=== PATIENT | male | born 1970 | race Caucasian/White ===

== ENCOUNTER 2018-08-05 14:17 | Emergency (ER) | payer OTHER ==
[2018-08-05 14:59] LABS: MEAN CORPUSCULAR HEMOGLOBIN 28.7 pg (28.0-34.0)
[2018-08-05] MEDS ORDERED: MULTIVIT INFUSN ADULT K IV SCH (15:00)
[2018-08-05] MEDS ORDERED: FOLIC ACID IV SCH (15:00)
[2018-08-05] MEDS ORDERED: [UNRECOGNIZED DRUG - OTHER] IV SCH (15:00)
[2018-08-05] MEDS ORDERED: THIAMINE HCL IV SCH (15:00)
--- NOTE | 2018-08-05 15:01 | ED Physician Documentation ---
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 Pt presents to the ED via POV with [facility] drug treatment facility counselor requesting medical clearance. reportedly pt has been drinking 1/2-1 gallon of vodka per day for the past 2 weeks. Pt has been trying to taper off on his own and has drank 1/2 pint of vodka today. previous to this episode pt had been etoh free for several years. pt has a hx DTs and acute liver failure from drinking per report. pt has a history of HTN and is Rx amlodipine although pt declines taking it the past several days. ROS/history limited due to pt condition. - ROS CONST: sweating, other (ETOH odor/intoxicated ) EYES/ENT: none CVS/RESP: none GI/: none. denies: vomiting, nausea MS/SKIN/LYMPH: none. denies: ankle swelling NEURO/PSYCH: denies: headache, fainting, dizziness, tingling - PAST HX Past History: hypertension Other History: other (liver failure) Allergies/Adverse Reactions: Allergies Allergy/AdvReac Type Severity Reaction Status Date / Time No Known Allergies Allergy Verified 08/05/18 15:02 Home Medications: Ambulatory Orders Medication Instructions Recorded Amlodipine/Valsartan [Exforge 1 tab PO DAILY 08/05/18 10-160 mg Tablet] - SOCIAL HX Smoking History: non-smoker Alcohol Use: heavy - FAMILY HX Family History: No - VITAL SIGNS Vital Signs: Vital Signs Temp Pulse Resp BP Pulse Ox 116 H 15 160/118 95 08/05/18 14:25 08/05/18 14:25 08/05/18 14:25 08/05/18 14:25 - REVIEWED ASSESSMENTS Nursing Assessment Reviewed: Yes Vitals Reviewed: Yes Progress - Progress Progress: 1530_ pt has increased restlessness and agitation. alert and mildly confused. Ativan 2 mg IV ordered. vss 1620-Pt has increased restlessness and tremors. Ativan 2 mg IV ordered. improved mentation. alert and oriented person and place. pt agrees to be transferred to higher level of care. vss 1625- Discussed Case with Dr Gross. He agrees pt needs to be admitted. No beds available at [facility]. - EKG/XRAY/CT EKG: rhythm (Sinus Tachycardia. No ectopy. normal axis. normal intervals. ), no ST T wave changes - Consult/PCP Time Called: 16:40 Consult/PCP: Dr Lou Alva [facility] Consult Reason/Comments: Accepted pt for transfer. Pt to be transferred via ALS ground. - Additional EKG/XRAY/Consults EKG #2: rhythm (Sinus Tachycardia. No ectopy. normal axis. normal intervals. ), unchanged from (1436) ED Results Lab/Radiology - Orders Orders: ED Orders Category Date Time Status ALCOHOL MEDICAL USE ONLY Stat Lab 08/05/18 Received CBC PLATELETS NO DIFF Stat Lab 08/05/18 14:40 Received CMP [CMP] Stat Lab 08/05/18 Received MAGNESIUM Stat Lab 08/05/18 Ordered TSH [THYROID STIMULATING HORMONE] Stat Lab 08/05/18 Received UA W/MICRO IF INDICATED Stat Lab 08/05/18 14:41 Ordered Urine drug screen [DRUG SCREEN URINE MEDICAL ONLY] Lab 08/05/18 Ordered Routine LORazepam [Ativan] Med 08/05/18 14:45 Discontinued 2 mg IVP NOW ONE Magnesium Sulfate/D5w [Magnesium-D5w 1 gm/100 ml Soln] Med 08/05/18 14:39 Discontinued 1 gm Premix Bag [Premix Fluid] 1 bag IV NOW Magnesium Sulfate/D5w [Magnesium-D5w 1 gm/100 ml Soln] Med 08/05/18 14:52 Discontinued 1 gm Premix Bag [Premix Fluid] 1 bag IV NOW Thiamine HCl 200 mg Med 08/05/18 15:00 Ordered Multivit Infusn,Adult 1,Vit K [M.v.i. Adult] 10 ml Folic Acid [Folvite] 5 mg 0.9 % Sodium Chloride [Normal Saline] 1,000 ml IV 1T Thiamine HCl 200 mg Med 08/05/18 15:00 Ordered Multivit Infusn,Adult 1,Vit K [M.v.i. Adult] 10 ml Folic Acid [Folvite] 5 mg 0.9 % Sodium Chloride [Normal Saline] 1,000 ml IV 1T General Adult Physical Exam - PHYSICAL EXAM GENERAL APPEARANCE: moderate distress EENT: eye inspection normal, ENT inspection normal, pharynx normal, no signs of dehydration NECK: normal inspection, supple RESPIRATORY: no resp distress, breath sounds normal. No: wheezes, rales, rhonchi CVS: reg rate & rhythm, tachycardia (110s) ABDOMEN: soft, normal bowel sounds, non-tender. No: guarding BACK: normal inspection SKIN: warm/dry, normal color EXTREMITIES: non-tender NEURO: disoriented (person only. unsteady gait. alert) Discharge Clincal Impression: Alcohol withdrawal Qualifiers: Complication of substance-induced condition: with delirium Qualified Code(s): F10.231 - Alcohol dependence with withdrawal delirium Referrals: Primary Doctor,No [Primary Care Provider] - 2 Days Condition: Good Disposition: 02 XFER S[facility]M HOSP Decision to Admit: NO Date of Decison to Admit: 08/05/18 Decision Time: 16:47
[2018-08-05] MEDS: MAGNESIUM SULFATE/D5W 1 GM in PREMIX BAG 1 BAG IV ONE ×2 (15:15→16:12)
[2018-08-05] MEDS: LORazepam 2 MG/ML VIAL IVP ONE ×3 (15:15→16:32)
[2018-08-05] MEDS: MAGNESIUM SULFATE/D5W 200 ML IV ONE (15:16)
[2018-08-05] MEDS: 0.9 % SODIUM CHLORIDE 1,000 ML IV ONE ×2 (15:17→15:57)
[2018-08-05] MEDS: MULTIVIT INFUSN,ADULT 1,VIT K 10 ML VIAL IV ONE (15:17)
[2018-08-05] MEDS: FOLIC ACID 5 MG/1 ML ONE (15:17)
[2018-08-05] MEDS: THIAMINE HCL 100 MG/ML 2ML VIAL ONE (15:17)
[2018-08-05] MEDS: THIAMINE HCL IV SCH (15:18)
[2018-08-05] MEDS: FOLIC ACID IV SCH (15:18)
[2018-08-05] MEDS: MULTIVIT INFUSN ADULT K IV SCH (15:18)
[2018-08-05] MEDS: [UNRECOGNIZED DRUG - OTHER] IV SCH (15:18)
[2018-08-05 15:21] LABS: eGFR (Non-African) > 60
[2018-08-05] MEDS: ONDANSETRON HCL/PF 4 MG/ 2ML VIAL IVP ONE (15:57)
[2018-08-05 17:33] VITALS: BP 130/79
== END 2018-08-05 17:28 | disposition short-term general hospital (02) ==
LOC: ED 14:17
DX: F10.231 Alcohol dependence with withdrawal delirium (principal)
CPT/HCPCS: 80053; 80320; 83735; 84443; 85027; 96365; 96368; 96375; 96376; 99285; J2060; J2405; J3411; J3490; G0480; J3475; J7030; S1016